=== PATIENT | female | born 1990 | race Caucasian/White ===

== ENCOUNTER 2019-02-04 10:31 | Day surgery (SDC) | payer OTHER, SELFPAY ==
[2019-02-01 08:39] VITALS: BMI 25.0
--- NOTE | 2019-02-04 | PATH_ITS ---
[facility] Accession Number: [id number] . 01 Material submitted: . cervix - CERVIX . 01 Clinical history: . LEEP CONE BIOPSY OF CERVIX (SUTURE AT 12 O'CLOCK) . 02 Diagnosis: Cervix, LEEP Biopsy: Small regions of involvement by low-grade squamous intraepithelial lesion/DAT-1. Minute, detached portions of squamous mucosa involved by dysplasia, cannot coompletely exclude high grade squamous intraepithelial lesion; electrocautery artifact is obscuring and scant atypical tissue volume precludes further characterization. Low grade squamous intraepithelial lesion / DAT-1 very focally involves the endocervical margin. The apparent ectocervical margin is negative for dysplasia. No invasive tumor identified. Focal changes suggestive of previous instrumentation are present. MRV 02/08/2019 1620 Local . 02 Comment: There is a minor discrepancy with Pap smear [id number]. . 02 Electronically signed: . Briana Wynne MD, Pathologist NPI- [id number] . 01 Gross description: . Received in formalin, labeled LEEP, cervical cone biopsy, is a piece of cervical tissue (1.4 x 1.2 x 0.4 cm) with dougherty-hardy smooth and shiny mucosa. No nodules, masses or lesions are identified. The specimen contains a suture designating 12 o'clock. The specimen cannot be oriented therefore the resection margin is inked blue. Serially sectioned and entirely submitted left to right as follows: (A1) tissue to the left of the suture; (A2) tissue to the right of the suture. ([id number]) /[facility] 02/05/2019 1611 Local . 02 Pathologist provided ICD-10: N87.0 . 02 CPT . 540028 Performed at: 01 [facility] [address] [place] [address], [place], [place] [id number] MD Ahmet Perez MD Phone: [phone] [facility]formed [facility]: [facility] [address] [place], [place] [id number] MD Margarita Paul MD Phone: [phone]
[2019-02-04] MEDS: LACTATED RINGERS 1,000 ML 42 ML IV (10:47)
[2019-02-04 10:53] VITALS: BP 106/69; PULSE 73; RESP 15; TEMP 36.4; O2SAT 100; BMI 24.5
--- NOTE | 2019-02-04 11:25 | SUR.OPER ---
Lithotomy on padded OR bed, head on pillow, arms secured on padded arm boards at <90 degrees abduction. Legs secured in padded yellow fins stirrups.
--- NOTE | 2019-02-04 11:34 | P.HP_ITS ---
History of Present Illness History of Present Illness Date Patient Seen: 02/04/19 Time Patient Seen: 11:34 Chief complaint: [id number] Narrative: Patient is a 28-year-old with DAT 2 of the cervix as well as in the endocervical canal. She is here for a LEEP cone biopsy of the cervix. Patient History Medical History (Updated 02/01/19 @ 08:48 by Hilda Ann RN) Depression (Acute) Surgical History (Updated 02/01/19 @ 08:48 by Hilda Ann RN) Hx of colposcopy with cervical biopsy (Acute 01/20/18) Family & Social History Social History: household members none Tobacco & Substance use: Smoking Status Never smoker Meds Home Medications and Allergies Home Medications Medication Instructions Recorded Confirmed Type sertraline 50 mg tablet 50 mg PO DAILY 12/15/18 02/04/19 History levonorgestrel 19.5 mcg/24 hrs (5 1 device INTRAUTERINE CONT 01/06/19 02/01/19 History yrs) 52 mg intrauterine device Allergies Allergy/AdvReac Type Severity Reaction Status Date / Time codeine Allergy Mild rash Verified 02/04/19 10:46 Exam Vital Signs (past 8 hours): - 02/04/19 10:53 Temperature 97.5 F L Pulse Rate 73 Respiratory Rate 15 Blood Pressure 106/69 Pulse Oximetry 100 Oxygen Delivery Method Room Air Narrative Exam Narrative: HEENT: No thyromegaly, no anterior cervical or supraclavicular lymphadenopathy. Lungs:Clear to auscultation bilaterally, no wheezes. Cardiovascular: Regular rate and rhythm, no murmurs, rubs, or gallops. Abdomen: No scars. No hepatosplenomegaly. No masses palpable. External genitalia: Normal Vagina: Normal Cervix: Nulliparous Bimanual exam: 6 Week size uterus. Mobile. Rectal: No masses. 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 The risks including bleeding, infection, and the risk of possible cervical weakening with a future , and the need for a cervical cerclage. She understands these risks and agrees to proceed. A full par Q was held and consent form was signed.
[2019-02-04] MEDS: KETOROLAC 30 MG/ML VIAL IV (11:49)
[2019-02-04] MEDS: BUPIVACAINE 0.5% W/ EPI (PF) 30 ML VIAL 10 ML INJ (11:50)
[2019-02-04 12:05] VITALS: BP 110/64; PULSE 72; RESP 16; TEMP 36.6; O2SAT 100
--- NOTE | 2019-02-04 12:10 | SUR.PHASEII ---
pt had no anesthesia - reviewed dc instructions and left ambulatory
--- NOTE | 2019-03-01 19:01 | PM.GYNOP.1 ---
Operative Date/Time/Diagnoses Date of procedure: 02/04/19 Time of procedure: 13:30 Pre-op diagnosis: DAT 2 of the cervix Post-op diagnosis: same Procedure & Clinicians Procedure: Procedures Operation Date: 02/04/19 11:45 Actual Procedures Side Surgeon p LEEP Procedure Mirna Vigil MD Indications: DAT 2 by colposcopic biopsy of the cervix Surgeon: Mirna Vigil Anesthesia Type: General (LMA) Operative Notes Findings: Lugol's light area surrounding the endocervical canal Closure Type: not applicable Specimen(s): other (LEEP cone biopsy of the cervix with suture at 12:00 p.m.) Estimated blood loss (mL): 10 Blood products transfused: none Procedure in detail: After informed consent was obtained, the patient was taken to the operating room where she was placed in the dorsal supine position. After adequate LMA general anesthesia was achieved, she was placed in the dorsal lithotomy position, and prepped and draped in the usual sterile fashion. A time-out was performed. A plastic coated bivalve speculum was placed into the vagina. A plastic coated single-tooth tenaculum was placed on the anterior lip of the cervix. The cervix was coated with Lugol solution. There was a Lugol's light areas surrounding the endocervical canal. Using the 15 mm loop, a LEEP cone biopsy was performed including the endocervical canal with settings at 60 cut and 40 cautery. The area was cauterized with the Bovie for hemostasis. The LEEP cone biopsy was tagged at the 12 o'clock position. Plastic coated single-tooth tenaculum was removed from the anterior lip of the cervix. The bivalve speculum was removed from the vagina. Sponge, lap, and instrument counts were correct x2. The patient tolerated the procedure well, was taken to PACU in stable condition. Complications: none Post-operative Condition: stable Disposition: PACU Plan for aftercare: Home after recovery
== END 2019-02-04 12:10 | disposition home or self-care (01) ==
PROVIDERS: PCP Family Medicine; Visit Provider Obstetrics & Gynecology
PROC: 0UBC7ZZ Excision of Cervix, Via Natural or Artificial Opening (ICD-10-PCS; CPT 57522; principal; 2019-02-04 11:45)
DX: N87.0 Mild cervical dysplasia (principal); F32.9 Major depressive disorder, single episode, unspecified
CPT/HCPCS: 57500; J1885